=== PATIENT | female | born 1995 | race Caucasian/White ===

== ENCOUNTER 2017-01-19 01:39 | Emergency (ER) | payer BC, MEDICAID ==
[~2017-01-19] VITALS: Ht 182.9 cm; Wt 97.5 kg
--- OUTSIDE RECORDS SUMMARY | 2017-01-19 01:47 | XMS REPORT ---
Author Author LUIGI JARA Organization [employer] Address Unknown Phone Unavailable Care Team Providers Care Radiotelegraph Operator Name Role Phone LUIGI JARA CP Unavailable Allergies No Known Allergies Problems Problem Type Condition Code Onset Dates Condition Status Problem Nausea alone 787.02 Active Assessment Major depressive disorder, recurrent episode, moderate F33.1 Active Problem Major depressive disorder, recurrent episode, moderate F33.1 Active Medications No Known Medications Procedures Procedure Coding System Code Date Psychotherapy, patient &/family, 30 minutes, established patient CPT-4 74545 Aug 29, 2016 Results No Known Results Summary Purpose [employer] Submission
--- NOTE | 2017-01-19 02:01 | ED Lower Extremity ---
General Chief Complaint: Lower Extremity Stated Complaint: ANKLE INJ Nursing Triage Note: PT TO ED W/ C/O RT ANKLE PAIN ONSET YESTERDAY WHILE AT WORK. REPORTS SHE SPRAINED IT X2-3 WKS AGO ET THEN TWISTED IT AGAIN YESTERDAY. PT ABLE TO AMBULATE W/O DIFFICULTY BUT IS C/O PAIN THAT "MAKES HER CRY" Source: patient, RN notes reviewed Exam Limitations: no limitations History of Present Illness Time seen by provider: 02:01 Initial Comments Patient presents c/ right ankle pain. Initially injured it 2-3 weeks ago, but it had been doing better until reinjured (twisted) it yesterday while @ work. Standing or walking on it is causing her to cry. Onset: yesterday Severity: severe Pain/Injury Location: right ankle Method of Injury: twisted Modifying Factors: Worse With Movement, Improves With Rest Allergies and Home Medications Allergies Coded Allergies: sertraline (Verified Allergy, Unknown, 01/19/17) sulfamethoxazole (Verified Allergy, Unknown, 01/19/17) trimethoprim (Verified Allergy, Unknown, 01/19/17) Home Medications Naproxen Sodium 550 Mg Tablet #20 550 MG PO Q12H Prescribed by: RUSSELL BRAXTON on 01/19/17 0214 Constitutional: see HPI : No Musculoskeletal: see HPI other (right ankle pain) Past Pbcxgtl-Zgjopb-Zftowu Hx Patient Social History Alcohol Use: Denies Use Recreational Drug Use: No Smoking Status: Never a Smoker Recent Foreign Travel: No Contact w/Someone Who Travel: No Recent Infectious Disease Expo: No Recent Hopitalizations: No Ebola Symptoms: Denies Symptoms Listed Surgeries HX Surgeries: No Respiratory Hx Respiratory Disorders: No Cardiovascular Hx Cardiac Disorders: No Neurological Hx Neurological Disorders: No Genitourinary Hx Genitourinary Disorders: No Gastrointestinal Hx Gastrointestinal Disorders: No Musculoskeletal Hx Musculoskeletal Disorders: No Endocrine Hx Endocrine Disorders: No HEENT HX ENT Disorders: No Cancer Hx Cancer: No Psychosocial Hx Psychiatric Problems: No Physical Exam Vital Signs Capillary Refill : General Appearance: WD/WN obese Cardiovascular: regular rate, rhythm Respiratory: no respiratory distress Ankles: right ankle limited range of motion, right ankle pain, right ankle soft tissue tenderness, right ankle swelling Neurologic/Tendon: normal sensation responds to pain Neurologic/Psychiatric: no motor/sensory deficits alert oriented x 3 Skin: warm/dry Progress/Results/Core Measures Results/Orders My Orders Orders-RUSSELL BRAXTON DO Ankle, Right, 3 Views (01/19/17 02:00) Tramadol Tablet (Ultram Tablet) (01/19/17 02:15) Steplite (01/19/17 02:17) Vital Signs/I&O Diagnostic Imaging Diagonstic Imaging: Xray Plain Films/CT/US/NM/MRI: ankle (nothing acute) Departure Impression Impression: Primary Impression: Sprain ankle/foot Disposition: 01 HOME, SELF-CARE Condition: Stable Departure-Patient Inst. Decision time for Depature: 02:15 Referrals: [facility] (PCP) Primary Care Physician Patient Instructions: Ankle Sprain (DC) Scripts Naproxen Sodium (Anaprox Ds)550 Mg [id number] Mg PO Q12H #20 TAB Ref 0 Prov:RUSSELL BRAXTON DO 01/19/17 Work/School Note: Work Release Form Date Seen in the Emergency Department: Jan 19, 2017 Return to Work: Jan 21, 2017 RUSSELL BRATXON DO Jan 19, 2017 02:01 Scripts Naproxen Sodium (Anaprox Ds)550 Mg [id number] Mg PO Q12H #20 TAB Ref 0 Prov:RUSSELL BRAXTON DO 01/19/17 Work/School Note: Work Release Form Date Seen in the Emergency Department: Jan 19, 2017 Return to Work: Jan 21, 2017 RUSSELL BRAXTON DO Jan 19, 2017 02:01
[2017-01-19] MEDS ORDERED: NAPR550T PO (02:14)
--- NOTE | 2017-01-19 07:38 | Diagnostic Imaging Report ---
INDICATION: Pain COMPARISON: None FINDINGS: 3 views of the right ankle are obtained. No acute fracture, malalignment or osseous destructive process is seen. The ankle joint space is preserved. There is mild soft tissue swelling. IMPRESSION: Mild soft tissue swelling without evidence of an acute underlying osseous abnormality. Dictated by: Dictated on workstation # [id number]
== END 2017-01-19 02:29 | disposition home or self-care (01) ==
LOC: EDUNIT# 01:39 → ER 01:44
DX: S93.401A Sprain of unspecified ligament of right ankle, initial encounter (principal); X50.9XXA Other and unspecified overexertion or strenuous movements or postures, initial encounter; Y99.8 Other external cause status
CPT/HCPCS: 73610; 99283

== ENCOUNTER 2017-08-27 09:35 | Emergency (ER) | payer OTHER, MEDICAID ==
[~2017-08-27] VITALS: Ht 182.9 cm; Wt 93.4 kg
[~2017-08-27 09:35] MED LIST: NAPR550T PO
--- OUTSIDE RECORDS SUMMARY | 2017-08-27 09:40 | XMS REPORT ---
Author Author CAMERON BIRMINGHAM Organization [facility] Address [address] [place] [address] Care Team Providers Care Industrial Retrofit Designer Name Role Phone CAMERON BIRMINGHAM Unavailable PROBLEMS Type Condition ICD9-CM Code LLT09-DB Code Onset Dates Condition Status SNOMED Code Problem Major depressive disorder, recurrent episode, moderate F33.1 Active 75458358 Problem Personality disorder F60.9 Active 30810131 Problem Anxiety disorder, unspecified type F41.9 Active 425874173 Problem Nausea alone 787.02 Active 284765383 ALLERGIES Substance Reaction Event Type Date Status Zoloft migraines Drug Allergy Dec, Active Bactrim swelling Drug Allergy Dec, Active SOCIAL HISTORY Never Assessed PLAN OF CARE Activity Details Follow Up prn Reason: VITAL SIGNS Height 72 in 2017-01-10 Weight 213.2 lbs 2017-01-10 Temperature 98.2 degrees Fahrenheit 2017-01-10 Heart Rate 82 bpm 2017-01-10 Respiratory Rate 18 2017-01-10 BMI 28.91 kg/m2 2017-01-10 Blood pressure systolic 110 mmHg 2017-01-10 Blood pressure diastolic 72 mmHg 2017-01-10 MEDICATIONS No Known Medications RESULTS Name Result Date Reference Range Xray : Ankle, Right 3 views (IN HOUSE) 2017-01-10 PROCEDURES Procedure Date Ordered Result Body Site X-RAY EXAM OF ANKLE Jan 10, 2017 IMMUNIZATIONS No Known Immunizations MEDICAL (GENERAL) HISTORY Type Description Date Medical History depression Medical History anxiety Medical History Denies any hx of heart problem Medical History Isolated seizure age 3 Hospitalization History Depression and mental health issues 2012
--- OUTSIDE RECORDS SUMMARY | 2017-08-27 09:40 | XMS REPORT ---
Author Author LUIGI JARA Organization [employer] Address Unknown Phone Unavailable Care Team Providers Care Import/Export Administrator Name Role Phone LUIGI JARA CP Unavailable Allergies No Known Allergies Problems Problem Type Condition Code Onset Dates Condition Status Problem Nausea alone 787.02 Active Assessment Major depressive disorder, recurrent episode, moderate F33.1 Active Problem Moderate episode of recurrent major depressive disorder F33.1 Active Medications No Known Medications Procedures Procedure Coding System Code Date Psychotherapy, patient &/family, 30 minutes, established patient CPT-4 93283 Sep 11, 2016 Results No Known Results Summary Purpose [employer]ClinicalWorks Submission
--- OUTSIDE RECORDS SUMMARY | 2017-08-27 09:40 | XMS REPORT ---
Author Author SAMI CABRERA Organization [employer] Address Unknown Phone Unavailable Care Team Providers Care Rod Drawer Name Role Phone SAMI CABRERA CP Unavailable Allergies, Adverse Reactions, Alerts Substance Reaction Event Type Bactrim swelling Drug Allergy Problems Problem Type Condition ICD-9 Code Onset Dates Condition Status Assessment Encounter to establish care V65.8 Active Assessment Contraceptive management V25.9 Active Problem Nausea alone 787.02 Active Medications Medication Code System Code Instructions Start Date End Date Status Dosage Nexplanon [facility] [address]-98 68 MG Subcutaneous not defined Procedures Procedure Coding System Code Date Office Visit, Est Pt., Level 4 CPT-4 04088 Jul 13, 2015 Vital Signs Date/Time: Jul 13, 2015 Temperature 98.5 F BMIPercentile 91.66 % Weight 205.7 lbs Height 72 in BMI 27.89 Index Blood Pressure Diastolic 74 mmHg Blood Pressure Systolic 118 mmHg Cardiac Monitoring Heart Rate 88 bpm Wt Percentile 98 % Ht Percentile 99.89 % Results No Known Results Summary Purpose [employer]ClinicalWorks Submission
--- OUTSIDE RECORDS SUMMARY | 2017-08-27 09:40 | XMS REPORT ---
Author Author LUIGI JARA Organization [employer] Address Unknown Phone Unavailable Care Team Providers Care Digital Learning Platforms Manager Name Role Phone LUIGI JARA CP Unavailable Allergies No Known Allergies Problems Problem Type Condition Code Onset Dates Condition Status Problem Nausea alone 787.02 Active Assessment Major depressive disorder, recurrent episode, moderate F33.1 Active Problem Major depressive disorder, recurrent episode, moderate F33.1 Active Medications No Known Medications Procedures Procedure Coding System Code Date Psychotherapy, patient &/family, 30 minutes, established patient CPT-4 29208 Aug 29, 2016 Results No Known Results Summary Purpose [employer] Submission
--- OUTSIDE RECORDS SUMMARY | 2017-08-27 09:40 | XMS REPORT ---
Author Author CAMERON BIRMINGHAM Organization [facility] Address [address] [place] [address] Care Team Providers Care Engineering Psychologist Name Role Phone CAMERON BIRMINGHAM Unavailable PROBLEMS Type Condition ICD9-CM Code [id number] Code Onset Dates Condition Status SNOMED Code Problem Major depressive disorder, recurrent episode, moderate F33.1 Active 58768168 Problem Personality disorder F60.9 Active 61389235 Problem Anxiety disorder, unspecified type F41.9 Active 377021742 Problem Nausea alone 787.02 Active 957609103 ALLERGIES Substance Reaction Event Type Date Status Zoloft migraines Drug Allergy Nov, Active Bactrim swelling Drug Allergy Nov, Active SOCIAL HISTORY No smoking Hx information available PLAN OF CARE Activity Details Follow Up prn Reason: VITAL SIGNS Height 72 in 2016-12-19 Weight 202.6 lbs 2016-12-19 Temperature 97.4 degrees Fahrenheit 2016-12-19 Heart Rate 88 bpm 2016-12-19 Respiratory Rate 18 2016-12-19 BMI 27.47 kg/m2 2016-12-19 Blood pressure systolic 110 mmHg 2016-12-19 Blood pressure diastolic 60 mmHg 2016-12-19 MEDICATIONS Medication Instructions Dosage Frequency Start Date End Date Duration Status Nexplanon 68 MG Active Amoxicillin 500 MG Orally every 12 hrs 1 capsule 12h Nov, Dec, 10 day(s) Active RESULTS Name Result Date Reference Range STREP A (IN HOUSE) 2016-12-19 STREP A positive Control + Lot # [id number] Exp date jul 11 PROCEDURES Procedure Date Ordered Related Diagnosis Body Site STREP A ASSAY W/OPTIC Dec 19, 2016 Office Visit, Est Pt., Level 3 Dec 19, 2016 IMMUNIZATIONS No Known Immunizations
--- OUTSIDE RECORDS SUMMARY | 2017-08-27 09:40 | XMS REPORT | Continuity of Care Document ---
Author Author [facility] Address Unknown Phone Unavailable Allergies Medications Problems Date Dx Coded Attending Type Code Diagnosis Diagnosed By 08/24/2009 RIGOBERTO STAPLES APRN V05.8 GARDASIL 01/19/2014 RIGOBERTO STAPLES APRN 787.02 NAUSEA ALONE Procedures Results Encounters ACCT No. Visit Date/Time Discharge Status Pt. Type Provider Facility Loc./Unit Complaint [id number] 01/19/2014 15:45:00 01/19/2014 23: 59:59 CLS Outpatient RIGOBERTO STAPLES APRN
--- OUTSIDE RECORDS SUMMARY | 2017-08-27 09:40 | XMS REPORT ---
Author Author BENNIE COPPOLA Organization [facility] Address [address] [place] [address] Care Team Providers Care Veterinarian Helper Name Role Phone BENNIE COPPOLA Unavailable PROBLEMS Type Condition ICD9-CM Code BNR45-JP Code Onset Dates Condition Status SNOMED Code Problem Major depressive disorder, recurrent episode, moderate F33.1 Active 41440454 Problem Personality disorder F60.9 Active 69139873 Problem Anxiety disorder, unspecified type F41.9 Active 413416875 Problem Nausea alone 787.02 Active 336637665 ALLERGIES Substance Reaction Event Type Date Status Zoloft migraines Drug Allergy Nov, Active Bactrim swelling Drug Allergy Nov, Active SOCIAL HISTORY Never Assessed PLAN OF CARE Activity Details Follow Up prn Reason: VITAL SIGNS Height 72 in 2016-12-18 Weight 205.0 lbs 2016-12-18 Temperature 97.9 degrees Fahrenheit 2016-12-18 Heart Rate 90 bpm 2016-12-18 Respiratory Rate 18 2016-12-18 BMI 27.80 kg/m2 2016-12-18 Blood pressure systolic 116 mmHg 2016-12-18 Blood pressure diastolic 80 mmHg 2016-12-18 MEDICATIONS Medication Instructions Dosage Frequency Start Date End Date Duration Status Nexplanon 68 MG Active RESULTS No Results PROCEDURES No Known procedures IMMUNIZATIONS No Known Immunizations MEDICAL (GENERAL) HISTORY Type Description Date Medical History depression Medical History anxiety Medical History Denies any hx of heart problem Medical History Isolated seizure age 3 Hospitalization History Depression and mental health issues 2012
--- OUTSIDE RECORDS SUMMARY | 2017-08-27 09:40 | XMS REPORT ---
Author Author SAMI CABRERA [facility] e[employer] Address Unknown Phone Unavailable Care Team Providers Care Link Trainer Maintenance Man Name Role Phone SAMI CABRERA CP Unavailable Allergies, Adverse Reactions, Alerts Substance Reaction Event Type Zoloft migraines Drug Allergy Bactrim swelling Drug Allergy Problems Problem Type Condition Code Onset Dates Condition Status Problem Nausea alone 787.02 Active Assessment Moderate episode of recurrent major depressive disorder F33.1 Active Problem Moderate episode of recurrent major depressive disorder F33.1 Active Assessment Encounter to establish care Z76.89 Active Medications Medication Code System Code Instructions Start Date End Date Status Dosage Nexplanon [facility] [address]-54 68 MG Subcutaneous not defined Lexapro [facility] [address]-08 10 mg Orally Once a day Sep 11, 2016 1 tablet Procedures Procedure Coding System Code Date Office Visit, New Pt., Level 3 CPT-4 93691 Sep 11, 2016 Vital Signs Date/Time: Sep 11, 2016 Cardiac Monitoring Heart Rate 80 bpm Weight 192.7 lbs Height 72 in Wt Percentile 96.77 % BMI 26.13 Index Blood Pressure Diastolic 70 mmHg Blood Pressure Systolic 114 mmHg BMIPercentile 85.18 % Results No Known Results Summary Purpose eClinicalWorks Submission
--- OUTSIDE RECORDS SUMMARY | 2017-08-27 09:40 | XMS REPORT ---
Author Author CAMERON BIRMINGHAM Organization [facility] Address [address] [place] [address] Care Team Providers Care Humane Agent Name Role Phone CAMERON BIRMINGHAM Unavailable PROBLEMS Type Condition ICD9-CM Code TIC98-SP Code Onset Dates Condition Status SNOMED Code Problem Major depressive disorder, recurrent episode, moderate F33.1 Active 11292789 Problem Personality disorder F60.9 Active 47860635 Problem Anxiety disorder, unspecified type F41.9 Active 852433727 Problem Nausea alone 787.02 Active 880862237 ALLERGIES Substance Reaction Event Type Date Status Zoloft migraines Drug Allergy Dec, Active Bactrim swelling Drug Allergy Dec, Active SOCIAL HISTORY Never Assessed PLAN OF CARE Activity Details Follow Up prn Reason: VITAL SIGNS Height 72 in 2016-12-30 Weight 204.8 lbs 2016-12-30 Temperature 97.1 degrees Fahrenheit 2016-12-30 Heart Rate 78 bpm 2016-12-30 Respiratory Rate 18 2016-12-30 BMI 27.77 kg/m2 2016-12-30 Blood pressure systolic 118 mmHg 2016-12-30 Blood pressure diastolic 68 mmHg 2016-12-30 MEDICATIONS Medication Instructions Dosage Frequency Start Date End Date Duration Status Clindamycin HCl 300 MG Orally every 8 hrs 2 capsules 8h Dec, Dec, 10 days Active RESULTS Name Result Date Reference Range STREP A (IN HOUSE) 2016-12-30 STREP A positive Control + Lot # [id number] Exp date jul 11 PROCEDURES Procedure Date Ordered Result Body Site STREP A ASSAY W/OPTIC Dec 30, 2016 IMMUNIZATIONS No Known Immunizations MEDICAL (GENERAL) HISTORY Type Description Date Medical History depression Medical History anxiety Medical History Denies any hx of heart problem Medical History Isolated seizure age 3 Hospitalization History Depression and mental health issues 2012
--- OUTSIDE RECORDS SUMMARY | 2017-08-27 09:40 | XMS REPORT ---
Author Author RUSSELL LOW [facility] Address [address] [place] [address] Care Team Providers Care Firer Helper Name Role Phone DEVANTE RUSSELL Unavailable PROBLEMS Type Condition ICD9-CM Code YHQ80-TV Code Onset Dates Condition Status SNOMED Code Problem Major depressive disorder, recurrent episode, moderate F33.1 Active 77319643 Problem Personality disorder F60.9 Active 40624549 Problem Anxiety disorder, unspecified type F41.9 Active 576172771 Problem Nausea alone 787.02 Active 252061857 ALLERGIES Substance Reaction Event Type Date Status Zoloft migraines Drug Allergy Dec, Active Bactrim swelling Drug Allergy Dec, Active SOCIAL HISTORY Never Assessed PLAN OF CARE VITAL SIGNS Height 72 in 2017-01-01 Weight 207.4 lbs 2017-01-01 Temperature 97.9 degrees Fahrenheit 2017-01-01 Heart Rate 80 bpm 2017-01-01 Respiratory Rate 20 2017-01-01 BMI 28.13 kg/m2 2017-01-01 Blood pressure systolic 108 mmHg 2017-01-01 Blood pressure diastolic 70 mmHg 2017-01-01 MEDICATIONS Medication Instructions Dosage Frequency Start Date End Date Duration Status PredniSONE 20 mg Orally Once a day 2 tablets 24h Dec, Dec, 05 days Active Clindamycin HCl 300 MG Orally every 8 hrs 2 capsules 8h Dec, Dec, 10 days Active RESULTS No Results PROCEDURES No Known procedures IMMUNIZATIONS No Known Immunizations MEDICAL (GENERAL) HISTORY Type Description Date Medical History depression Medical History anxiety Medical History Denies any hx of heart problem Medical History Isolated seizure age 3 Hospitalization History Depression and mental health issues 2012
[2017-08-27] MEDS ORDERED: TETANUS,DIPTH,PERTUSS P/F (BOOSTRIX) 0.5 ML VIAL IM STA (09:59)
[2017-08-27] MEDS ORDERED: L.E.T. SYRINGE 5 ML MM STA (09:59)
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
== END 2017-08-27 11:24 | disposition home or self-care (01) ==
LOC: EDUNIT# 09:35 → ER 09:36
DX: F32.9 Major depressive disorder, single episode, unspecified; Z23 Encounter for immunization; S01.81XA Laceration without foreign body of other part of head, initial encounter; S80.02XA Contusion of left knee, initial encounter; V43.52XA Car driver injured in collision with other type car in traffic accident, initial encounter
CPT/HCPCS: 12011; 70450; 73562; 90715

== ENCOUNTER 2017-11-24 10:32 | Emergency (ER) | payer MEDICAID ==
[~2017-11-24] VITALS: Ht 182.9 cm; Wt 90.7 kg
[~2017-11-24 10:32] MED LIST changes: +NAPR-1070 PO; -NAPR550T PO
--- OUTSIDE RECORDS SUMMARY | 2017-11-24 10:39 | XMS REPORT | Continuity of Care Document ---
Author Author [facility] Address Unknown Phone Unavailable Allergies There is no data. Medications There is no data. Problems Date Dx Coded Attending Type Code Diagnosis Diagnosed By 08/24/2009 RIGOBERTO STAPLES APRN V05.8 GARDASIL 01/19/2014 IRGOBERTO STAPLES APRN 787.02 NAUSEA ALONE Procedures There is no data. Results There is no data. Encounters ACCT No. Visit Date/Time Discharge Status Pt. Type Provider Facility Loc./Unit Complaint [id number] 01/19/2014 15:45:00 01/19/2014 23:59:59 CLS Outpatient RIGOBERTO STAPLES APRN
[2017-11-24] MEDS ORDERED: NS IV 1000 ML 1,000 ML IV ONE (11:19)
[2017-11-24] MEDS ORDERED: HYOSCYAMINE 0.125 MG (LEVSIN) TAB SL ONE (11:30)
[2017-11-24] MEDS ORDERED: ONDANSETRON 4 MG/2 ML (SDV) Z0FRAN IVP ONE (11:30)
[2017-11-24 11:47] LABS: BILIRUBIN,URINE NEGATIVE (NEGATIVE); CLARITY,URINE SLIGHTLY CLOUDY; COLOR,URINE YELLOW; GLUCOSE, URINE (UA) NEGATIVE (NEGATIVE); KETONES,URINE NEGATIVE (NEGATIVE); LEUKOCYTE ESTERASE ,URINE 3+ (NEGATIVE); NITRITE,URINE NEGATIVE (NEGATIVE); PH,URINE 5 (5-9); PROTEIN,URINE 1+ (NEGATIVE); UROBILINOGEN,URINE NORMAL (NORMAL)
[2017-11-24 11:56] LABS: BACTERIA,URINE MODERATE /HPF; WBC,URINE 25-50 /HPF
[2017-11-24 12:17] LABS: BASOPHILS % (AUTO) 0 % (0-10); EOSINOPHILS # (AUTO) 0.3 10^3/uL (0.0-0.3); EOSINOPHILS % (AUTO) 7 % (0-10); HEMATOCRIT 43 % (35-52); HEMOGLOBIN 14.2 G/DL (11.5-16.0); LYMPHOCYTES # (AUTO) 1.2 X 10^3 (1.0-4.0); LYMPHOCYTES % (AUTO) 29 % (12-44); MEAN CORPUSCULAR HEMOGLOBIN 29 PG (25-34); MEAN CORPUSCULAR HGB CONC 33 G/DL (32-36); MEAN CORPUSCULAR VOLUME 88 FL (80-99); MEAN PLATELET VOLUME 11.4 FL (7.4-10.4); MONOCYTES # (AUTO) 0.5 X 10^3 (0.0-1.0); MONOCYTES % (AUTO) 13 % (0-12); NEUTROPHILS % (AUTO) 51 % (42-75); PLATELET COUNT 215 10^3/uL (130-400); RED CELL DISTRIBUTION WIDTH 12.8 % (10.0-14.5)
[2017-11-24 12:26] LABS: SMEAR SCAN COMMENT YES
--- NOTE | 2017-11-24 12:26 | ED GI ---
General Chief Complaint: Abdominal/GI Problems Stated Complaint: N/V/D Nursing Triage Note: PT CO OF ABD CRAMPING N/V/D SINCE FRIDAY, NO VOMITING TODAY Sepsis Screen: No Definite Risk Source of Information: Patient Exam Limitations: No Limitations Allergies and Home Medications Allergies Coded Allergies: sertraline (Verified Allergy, Unknown, 01/19/17) sulfamethoxazole (Verified Allergy, Unknown, 01/19/17) trimethoprim (Verified Allergy, Unknown, 01/19/17) Home Medications Cephalexin 500 Mg Capsule, 500 MG PO QID, #28 Prescribed by: MAGUE DONG on 11/24/17 1408 Hyoscyamine Sulfate 0.125 Mg Tab.subl, 1-2 TAB SL Q4H PRN for CRAMPS, #10 For cramping and diarrhea Prescribed by: MAGUE DONG on 11/24/17 1408 Ondansetron 4 Mg Tab.rapdis, 4 MG SL Q4H PRN for NAUSEA/VOMITING-1ST LINE, #10 Prescribed by: MAGUE DONG on 11/24/17 1408 Past Pvdlgll-Fppccr-Cghmiw Hx Patient Social History Alcohol Use: Denies Use Recreational Drug Use: No Smoking Status: Never a Smoker Recent Foreign Travel: No Contact w/Someone Who Travel: No Recent Infectious Disease Expo: No Recent Hopitalizations: No Physical Abuse: No Sexual Abuse: No Immunizations Up To Date Tetanus Booster (TDap): Less than 5yrs Surgeries History of Surgeries: No Respiratory History of Respiratory Disorde: No Cardiovascular History of Cardiac Disorders: No Neurological History of Neurological Disord: No Reproductive System : No (IMPLANON) Genitourinary History of Genitourinary Disor: No Gastrointestinal History of Gastrointestinal Di: No Musculoskeletal History of Musculoskeletal Dis: No Endocrine History of Endocrine Disorders: No Cancer History of Cancer: No Psychosocial History of Psychiatric Problem: Yes Behavioral Health Disorders: Depression Suicide Risk Score: 0 Family Medical History Significant Family History: No Pertinent Family Hx Physical Exam Vital Signs VS - Last 72 Hours, by Label 11/24/17 10:56 Temp 98.2 Pulse 88 Resp 18 B/P (MAP) 127/77 (94) Pulse Ox 98 Capillary Refill : Less Than 3 Seconds Progress/Results/Core Measures Results/Orders Lab Results Laboratory Tests Test 11/24/17 11:36 11/24/17 12:08 11/24/17 13:13 Range/Units Urine Color YELLOW Urine Clarity SLIGHTLY CLOUDY Urine pH 5 5-9 Urine Specific [place] 1.020 1.016-1.022 Urine Protein 1+ H NEGATIVE Urine Glucose (UA) NEGATIVE NEGATIVE Urine Ketones NEGATIVE NEGATIVE Urine Nitrite NEGATIVE NEGATIVE Urine Bilirubin NEGATIVE NEGATIVE Urine Urobilinogen NORMAL NORMAL MG/DL Urine Leukocyte Esterase 3+ H NEGATIVE Urine RBC (Auto) NEGATIVE NEGATIVE Urine RBC NONE /HPF Urine WBC 25-50 H /HPF Urine Squamous Epithelial Cells 2-5 /HPF Urine Crystals NONE /LPF Urine Bacteria MODERATE H /HPF Urine Casts NONE /LPF Urine Mucus NEGATIVE /LPF Urine Culture Indicated YES White Blood Count 4.0 L 4.3-11.0 10^3/uL Red Blood Count 4.90 4.35-5.85 10^6/uL Hemoglobin 14.2 11.5-16.0 G/DL Hematocrit 43 35-52 % Mean Corpuscular Volume 88 80-99 FL Mean Corpuscular Hemoglobin 29 25-34 PG Mean Corpuscular Hemoglobin Concent 33 32-36 G/DL Red Cell Distribution Width 12.8 10.0-14.5 % Platelet Count 215 130-400 10^3/uL Mean Platelet Volume 11.4 H 7.4-10.4 FL Neutrophils (%) (Auto) 51 42-75 % Lymphocytes (%) (Auto) 29 12-44 % Monocytes (%) (Auto) 13 H 0-12 % Eosinophils (%) (Auto) 7 0-10 % Basophils (%) (Auto) 0 0-10 % Neutrophils # (Auto) 2.0 1.8-7.8 X 10^3 Lymphocytes # (Auto) 1.2 1.0-4.0 X 10^3 Monocytes # (Auto) 0.5 0.0-1.0 X 10^3 Eosinophils # (Auto) 0.3 0.0-0.3 10^3/uL Basophils # (Auto) 0.0 0.0-0.1 10^3/uL Smear Scan YES Sodium Level 140 135-145 MMOL/L Potassium Level 3.6 3.6-5.0 MMOL/L Chloride Level 105 98-107 MMOL/L Carbon Dioxide Level 24 21-32 MMOL/L Anion Gap 11 5-14 MMOL/L Blood Urea Nitrogen 12 7-18 MG/DL Creatinine 0.72 0.60-1.30 MG/DL Estimat Glomerular Filtration Rate > 60 BUN/Creatinine Ratio 17 Glucose Level 86 70-105 MG/DL Calcium Level 8.8 8.5-10.1 MG/DL Magnesium Level 2.0 1.8-2.4 MG/DL Total Bilirubin 0.6 0.1-1.0 MG/DL Aspartate Amino Transf (AST/SGOT) 19 5-34 U/L Alanine Aminotransferase (ALT/SGPT) 23 0-55 U/L Alkaline Phosphatase 91 40-136 U/L Total Protein 7.4 6.4-8.2 GM/DL Albumin 4.1 3.2-4.5 GM/DL My Orders Orders - MAGUE WHITNEY MD Cbc With Automated Diff (11/24/17 11:19) Comprehensive Metabolic Panel (11/24/17 11:19) Magnesium (11/24/17 11:19) Ua Culture If Indicated (11/24/17 11:19) Saline Lock/Iv-Start (11/24/17 11:19) Ns Iv 1000 Ml (Sodium Chloride 0.9%) (11/24/17 11:19) Ondansetron Injection (Zofran Injectio (11/24/17 11:30) Hyoscyamine Sl Tablet (Levsin Sl Tablet) (11/24/17 11:30) Urine Culture (11/24/17 11:36) Ceftriaxone Injection (Rocephin Injectio (11/24/17 12:30) Medications Given in ED Current Medications Medications Dose Ordered Sig/Kaiser Route Start Time Stop Time Status Last Admin Dose Admin Ceftriaxone Sodium 1000 mg/ Sodium Chloride 50 ml @ 100 mls/hr ONCE ONCE IV 11/24/17 12:30 11/24/17 12:59 DC 11/24/17 13:09 100 MLS/HR Hyoscyamine Sulfate 0.25 mg ONCE ONCE SL 11/24/17 11:30 11/24/17 11:31 DC 11/24/17 11:52 0.25 MG Ondansetron HCl 8 mg ONCE ONCE IVP 11/24/17 11:30 11/24/17 11:31 DC 11/24/17 11:52 8 MG Sodium Chloride 1,000 ml @ 0 mls/hr Q0M ONCE IV 11/24/17 11:19 11/24/17 11:21 DC 11/24/17 11:52 1,000 MLS/HR Vital Signs/I&O Vital Sign - Last 12Hours 11/24/17 10:56 Temp 98.2 Pulse 88 Resp 18 B/P (MAP) 127/77 (94) Pulse Ox 98 Blood Pressure Mean: 94 Departure Impression Impression: Primary Impression: Nausea vomiting and diarrhea Additional Impressions: Urinary tract infection Qualified Codes: N39.0 - Urinary tract infection, site not specified Lower abdominal pain Disposition: HOME, SELF-CARE Condition: Improved Departure-Patient Inst. Decision time for Depature: 12:32 Referrals: [facility] (PCP/Family) Primary Care Physician Patient Instructions: Acute Abdomen (Belly Pain), Adult (DC), Urinary Tract Infection, Adult (DC) Add. Discharge Instructions: Drink plenty of clear liquids. Gradually advance your diet with small quantities of bland food as tolerated. Avoid milk products until diarrhea has resolved for at least 24 hours. Complete your antibiotic as prescribed. Follow-up with your primary care provider on Friday to review urine culture results. Use your medications as prescribed for nausea, vomiting, abdominal cramping, and diarrhea. Return to emergency room if symptoms worsen. You may take Tylenol and/or ibuprofen for pain. All discharge instructions reviewed with patient and/or family. Voiced understanding. Scripts Cephalexin (Keflex) 500 Mg Capsule 500 MG PO QID, #28 CAP Prov: MAGUE WHITNEY MD 11/24/17 Hyoscyamine Sulfate (Levsin-Sl) 0.125 Mg Tab.subl 1-2 TAB SL Q4H Y for CRAMPS, #10 TAB For cramping and diarrhea Prov: MAGUE WHITNEY MD 11/24/17 Ondansetron (Zofran Odt) 4 Mg Tab.rapdis 4 MG SL Q4H Y for NAUSEA/VOMITING-1ST LINE, #10 TAB Prov: MAGUE WHITNEY MD 11/24/17 Work/School Note: Work Release Form Date Seen in the Emergency Department: Nov 24, 2017 Return to Work: Nov 25, 2017 Restrictions: No Restrictions MAGUE WHITNEY MD Nov 24, 2017 12:26
[2017-11-24] MEDS ORDERED: cefTRIAXone INJECTION 1,000 MG in NS (IVPB) 50 ML IV ONE (12:30)
[2017-11-24 13:39] LABS: ALANINE AMINOTRANSFERASE 23 U/L (0-55); ALBUMIN 4.1 GM/DL (3.2-4.5); ALKALINE PHOSPHATASE 91 U/L (40-136); BILIRUBIN,TOTAL 0.6 MG/DL (0.1-1.0); BUN/CREATININE RATIO 17; CALCIUM 8.8 MG/DL (8.5-10.1); CARBON DIOXIDE 24 MMOL/L (21-32); CHLORIDE 105 MMOL/L (98-107); CREATININE SERUM 0.72 MG/DL (0.60-1.30); GFR ESTIMATED > 60; GLUCOSE 86 MG/DL (70-105); POTASSIUM 3.6 MMOL/L (3.6-5.0); SODIUM 140 MMOL/L (135-145); TOTAL PROTEIN 7.4 GM/DL (6.4-8.2)
[2017-11-24] MEDS ORDERED: ONDA4TAB8 SL (14:08)
[2017-11-24] MEDS ORDERED: HYOS0.1283 SL (14:08)
[2017-11-24] MEDS ORDERED: CEPH-507 PO (14:08)
[2017-11-24 14:17] VITALS: BP 127/77
== END 2017-11-24 14:17 | disposition home or self-care (01) ==
LOC: EDUNIT# 10:32 → ER 10:35
DX: N39.0 Urinary tract infection, site not specified (principal); R19.7 Diarrhea, unspecified; F32.9 Major depressive disorder, single episode, unspecified
CPT/HCPCS: 36415; 80053; 81000; 83735; 85025; 87088

== ENCOUNTER → 2019-06-09 | Outpatient (CLI) | payer MEDICAID ==
[~2019-06-09] MED LIST changes: +CEPH-507 PO; +HYOS0.1283 SL; +ONDA4TAB8 SL
--- NOTE | 2019-06-09 18:11 | Diagnostic Imaging Report ---
PROCEDURE: CT abdomen and pelvis without contrast. TECHNIQUE: Multiple contiguous axial images were obtained through the abdomen and pelvis without the use of intravenous contrast. Auto Exposure Controls were utilized during the CT exam to meet ALARA standards for radiation dose reduction. INDICATION: Microhematuria The lung bases are clear. Liver appears normal. The gallbladder is decompressed. The pancreas appears normal. Spleen is not enlarged. Adrenal glands appear normal. The kidneys appear normal. There is no calculus. There is no hydronephrosis. Ureters are clear. There is no retroperitoneal lymphadenopathy. The appendix appears normal. Small bowel is not dilated. Colon is unremarkable. Uterus and adnexa are unremarkable. Urinary bladder appears normal. There is no intraperitoneal free air or free fluid. Impression: Negative CT abdomen and pelvis Dictated by: Dictated on workstation # [id number]
[2019-06-09 18:15] LABS: BACTERIA,URINE MODERATE /HPF; BILIRUBIN,URINE NEGATIVE (NEGATIVE); CLARITY,URINE CLEAR; COLOR,URINE YELLOW; GLUCOSE, URINE (UA) NEGATIVE (NEGATIVE); KETONES,URINE NEGATIVE (NEGATIVE); LEUKOCYTE ESTERASE ,URINE 2+ (NEGATIVE); NITRITE,URINE NEGATIVE (NEGATIVE); PH,URINE 6 (5-9); PROTEIN,URINE 1+ (NEGATIVE); RBC,URINE 0-2 /HPF; UROBILINOGEN,URINE NORMAL (NORMAL)
== END ==
LOC: RAD 17:35
PROVIDERS: ATTEND Urology
DX: R31.29 Other microscopic hematuria (principal); Z87.440 Personal history of urinary (tract) infections
CPT/HCPCS: 74176; 81000; 87088

== ENCOUNTER 2021-06-15 04:29 | Emergency (ER) | payer MEDICAID ==
[~2021-06-15] VITALS: Ht 182.9 cm; Wt 113.9 kg
[2021-06-15] MEDS ORDERED: LIDOCAINE 2% VISCOUS 15 ML UDC PO ONE (05:00)
[2021-06-15] MEDS ORDERED: ANTACID SUSP 30 ML UDC (MYLANTA) PO ONE (05:00)
--- NOTE | 2021-06-15 05:09 | ED General ---
General Chief Complaint: Cough/Cold/Flu Symptoms Stated Complaint: UPPER BACK & CHEST BURNING PAIN,HURTS TO BREATH Nursing Triage Note: TO ED VIA POV AND AMBULATORY TO ROOM 7 WITH C/O SORE THROAT X3 DAYS, CHEST PRESSURE TODAY AND HURTS TO BREATHE, DENIES COUGH, FEVER, N/V/D, LOSS OF TASTE OR SMELL. WAS SEEN AT [facility] AND GIVEN STEROIDS, BUT NOT TESTED FOR FLU/STREP/COVID. Source of Information: Patient Exam Limitations: No Limitations History of Present Illness Date Seen by Provider: Jun 15, 2021 Time Seen by Provider: 04:38 Initial Comments This 25-year-old young lady presents to the emergency room with central pleuritic chest pressure that is exacerbated with breathing and swallowing. Pain radiates between her shoulders posteriorly. She denies cough, shortness of breath, fever, vomiting, diarrhea, or change in taste or smell. She presented to the outpatient clinic and was prescribed NSAIDs and steroids. Allergies and Home Medications Allergies Coded Allergies: sertraline (Verified Allergy, Unknown, 01/19/17) sulfamethoxazole (Verified Allergy, Unknown, 01/19/17) trimethoprim (Verified Allergy, Unknown, 01/19/17) Home Medications Cephalexin 500 Mg Capsule, 500 MG PO QID Prescribed by: MAGUE DONG on 11/24/17 1408 Hyoscyamine Sulfate 0.125 Mg Tab.subl, 1-2 TAB SL Q4H PRN for CRAMPS For cramping and diarrhea Prescribed by: MAGUE DONG on 11/24/17 1408 Ondansetron 4 Mg Tab.rapdis, 4 MG SL Q4H PRN for NAUSEA/VOMITING-1ST LINE Prescribed by: MAGUE DONG on 11/24/17 1408 Patient Home Medication List Home Medication List Reviewed: Yes Review of Systems Review of Systems Constitutional: no symptoms reported EENTM: see HPI Respiratory: no symptoms reported Cardiovascular: no symptoms reported Gastrointestinal: see HPI Genitourinary: no symptoms reported : No Musculoskeletal: no symptoms reported Skin: no symptoms reported Psychiatric/Neurological: No Symptoms Reported Hematologic/Lymphatic: No Symptoms Reported Immunological/Allergic: no symptoms reported Past Uheztot-Xkyhil-Qkzctd Hx Patient Social History Tobacco Use?: No Substance use?: No Alcohol Use?: No Pt feels they are or have been: No Immunizations Up To Date Tetanus Booster (TDap): Less than 5yrs First/Initial COVID19 Vaccinat: 06/04/21 COVID19 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 oz. 90.948397ys; 34.00 BMI Method:Stated General Appearance: No Apparent Distress, WD/WN, Obese HEENT: PERRL/EOMI, Normal ENT Inspection, Pharynx Normal Neck: Normal Inspection Respiratory: Lungs Clear, Normal Breath Sounds, No Accessory Muscle Use, No Respiratory Distress Cardiovascular: Regular Rate, Rhythm, No Edema, No Murmur Gastrointestinal: Normal Bowel Sounds, Non Tender, Soft Extremity: Normal Inspection, No Calf Tenderness, No Pedal Edema Neurologic/Psychiatric: Alert, Oriented x3, No Motor/Sensory Deficits, Normal Mood/Affect, clinical research nurse II-XII Norm as Tested Skin: Normal Color, Warm/Dry Progress/Results/Core Measures Suspected Sepsis SIRS Temperature: Pulse: 79 Respiratory Rate: 16 Blood Pressure 130 /78 Mean: 95 Results/Orders Lab Results Laboratory Tests Test 06/15/21 04:44 Range/Units Influenza Type A (RT-PCR) Not Detected Not Detecte Influenza Type B (RT-PCR) Not Detected Not Detecte SARS-CoV-2 RNA (RT-PCR) Not Detected Not Detecte Group A Streptococcus Screen NEGATIVE NEGATIVE My Orders Orders - MAGUE WHITNEY MD Covid 19 Inhouse Test (06/15/21 04:38) Influenza A And B By Pcr (06/15/21 04:38) Rapid Strep A Screen (06/15/21 04:51) Lidocaine 2% Viscous 15 Ml (Xylocaine Vi (06/15/21 05:00) Antacid Suspension (Mylanta Suspension (06/15/21 05:00) Medications Given in ED Current Medications Medications Dose Ordered Sig/Kaiser Route Start Time Stop Time Status Last Admin Dose Admin Al Hydrox/Mg Hydrox/Simethicone 30 ml ONCE ONCE PO 06/15/21 05:00 06/15/21 05:01 DC 06/15/21 05:00 30 ML Lidocaine HCl 15 ml ONCE ONCE PO 06/15/21 05:00 06/15/21 05:01 DC 06/15/21 05:00 15 ML Vital Signs/I&O 06/15/21 06/15/21 04:41 04:41 Temp 36.5 Pulse 79 Resp 16 B/P (MAP) 130/78 (95) O2 Delivery Room Air Room Air Capillary Refill : Less Than 3 Seconds Blood Pressure Mean: 95 Progress Note : Progress Note Covid and influenza screens were negative. GI cocktail reduced pain by about 50% suggesting source of pain is esophageal and gastric in nature. Departure Impression Primary Impression: Pleuritic chest pain Disposition: HOME, SELF-CARE Condition: Improved Departure-Patient Inst. Decision time for Depature: 06:00 Referrals: [facility] (PCP/Family) Primary Care Physician Patient Instructions: Acid Reflux and Gastroesophageal Reflux Disease in Adults Add. Discharge Instructions: Take an antacid such as omeprazole 20 mg twice daily for at least the next couple of weeks. Use Carafate (sucralfate) as prescribed as well. Avoid the following: Eating large meals, eating close to bedtime, caffeine, carbonation, chocolate, citrus fruits and juices, tomato products, mints, alcohol, tobacco, NSAID medications such as ibuprofen or naproxen, spicy foods, fatty or greasy foods, or anything else you know irritate your stomach. Elevating the head of your bed when you lie down can also help reduce acid reflux. Call with questions or concerns, and return to the ER if you have worsening symptoms. Follow-up with your primary care provider soon as possible. Discontinue meloxicam and prednisone until your pain completely resolves. All discharge instructions reviewed with patient and/or family. Voiced understanding. Scripts Sucralfate (Carafate) 1 Gm Tablet 1 GM PO QID, #120 TAB Crush or dissolve in 5 to 10 mL water to make slurry. Take 30 minutes before meals and bedtime. Prov: MAGUE WHITNEY MD 06/15/21 Omeprazole (Omeprazole) 20 Mg Capsule. 20 MG PO BID, #60 CAP Prov: MAGUE WHITNEY MD 06/15/21 Copy Copies To 1: FLASH DAMIAN JOSHUA T MD Jun 15, 2021 05:09
[2021-06-15] MEDS ORDERED: SUCR1TAB36 PO (06:13)
[2021-06-15] MEDS ORDERED: OMEP20CA18 PO (06:13)
[2021-06-15 06:21] VITALS: BP 103/75
== END 2021-06-15 06:19 | disposition home or self-care (01) ==
LOC: EDUNIT# 04:29 → ER 04:34
DX: R07.81 Pleurodynia (principal); E66.9 Obesity, unspecified; Z68.34 Body mass index [BMI] 34.0-34.9, adult; Z20.822 Contact with and (suspected) exposure to COVID-19
CPT/HCPCS: 87430; 87636